=== PATIENT | female | born 1960 | race Caucasian/White ===

== ENCOUNTER → 2017-12-21 08:18 | Outpatient (CLI) | payer BC, SELFPAY ==
--- NOTE | 2017-12-21 08:29 | XR_ITS ---
XR DEXA axial skeleton HISTORY: ITS.REASON: POST MENOPAUSAL OSTEOPAROSIS SCREENING ORDERING PHYSICIAN: Davian Lopez MD PATIENT AGE: 57 years COMPARISON: 03/27/2011 FINDINGS: Lowest bone density described below The BMD measured at the right femoral neck is 1.076 g/cm squared with a T score of 0.3. This is considered normal according to the World Health Organization criteria. Fracture risk is low. Recommend follow-up exam December 2019. The density of the lumbar spine the T score 0.4. IMPRESSION: Normal bone density
== END ==
PROVIDERS: Family Provider Family Medicine; PCP Family Medicine; Visit Provider Family Medicine
DX: Z13.820 Encounter for screening for osteoporosis (principal); Z78.0 Asymptomatic menopausal state
CPT/HCPCS: 77080

== ENCOUNTER → 2018-06-05 08:36 | Outpatient (CLI) | payer BC, SELFPAY ==
--- NOTE | 2018-06-05 08:43 | US_ITS ---
MM Dig mamm DX unilat LT CAD, US breast LT complete, US mammotome bx LT, US organ site (breast) Ordering Physician: Davian Lopez MD Patient Age: 57 years Female ULTRASOUND LEFT BREAST ULTRASOUND-GUIDED MAMMOTOME VACUUM ASSISTED CORE BIOPSY with clip placement INDICATION: Left breast nodule seen on outside studies from [facility] COMPARISON: 05/24/2018 outside mammogram and ultrasound which revealed new solid nodule at 8 O'clock position left breast. Suspicious appearance on ultrasound ======== ULTRASOUND LEFT BREAST: The initial ultrasound again shows solid hypoechoic nodule at deep left breast 9 o'clock position. This measures up to 1 cm. Its position was confirmed and the best route for biopsy was determined by Dr. Eubanks and technologist MW ======= ULTRASOUND-GUIDED MAMMOTOME BIOPSY WITH CLIP PLACEMENT RIGHT BREAST] Patient was offered and received Xanax 0.5 & Lortab 5 prior to this procedure for comfort and mild sedation. Following sterile preparation and local skin anesthesia and deep Xylocaine anesthetic placement we proceeded with subsequently mammotome biopsy Small 2 mm incision was made in the skin by Dr. Eubanks after additional local skin anesthesia was placed,. Subsequent deep anesthetic placement posterior to the lesion The 12-gauge mammotome needle was then passed under ultrasound guidance. It was placed posterior aspect of the nodule and multiple biopsies were obtained removing majority portion of this this nodule. Patient tolerated procedure well.. At the end of procedure small clip with collagen plug was placed at the biopsy site. . ========= DIAGNOSTIC LEFT MAMMOGRAM post biopsy MLO cc view left breast performed. The nodular density at the medial left breast has been for the most part removed. A CT but postbiopsy changes in this area. Some scattered air within the apices site Along with the metallic marker clip from recent procedure. Patient tolerated well. Follow-up left mammogram 6 months suggested =======IMPRESSION: ========= 1. Successful ultrasound-guided mammotome biopsy left breast nodule . Majority of the suspicious nodule removed, here at at 9 o'clock position deep left breast. & Clip was placed (see PATHOLOGY REPORT.-- POSITIVE for MALIGNANCY . Invasive ductal carcinoma grade 2) 2. Left mammogram Postbiopsy demonstrates postbiopsy changes and documents metallic postbiopsy clip placement RECOMMENDED FOLLOW-UP: 6M 6 MONTH FOLLOW-UP Left mammogram 6 months suggested in part due to likely stable breast density which would benefit from follow-up in 6 months to confirm stability. A letter has been sent to the patient regarding results of the study.)
== END ==
PROVIDERS: Family Provider Family Medicine; PCP Family Medicine; Visit Provider Family Medicine
DX: R92.8 Other abnormal and inconclusive findings on diagnostic imaging of breast (principal)
CPT/HCPCS: 19083; 76641; 76942; 77065; C2618

== ENCOUNTER → 2018-07-04 17:56 | Outpatient (REF) | payer BC, SELFPAY | LOC: LAB 17:56 | PROVIDERS: Visit Provider Podiatrist | DX: B35.1 Tinea unguium (principal) | CPT/HCPCS: 87102; 87206; 87220 ==

== ENCOUNTER → 2018-09-09 07:27 | Outpatient (CLI) | payer BC, SELFPAY ==
[2018-09-09 07:37] LABS: Basophils # 0.1 K/mm3 (0-0.2); Basophils % 1.3 % (0.1-2.0); Eosinophils # 0.1 K/mm3 (0.0-0.4); Eosinophils % 2.8 % (0.1-12.0); Hematocrit 42.3 % (37.0-47.0); Hemoglobin 13.9 g/dL (12.2-16.2); Lymphocytes # 1.2 K/mm3 (0.7-4.5); Lymphocytes % 23.9 K/mm3 (10-50); Mean Corpuscular Hemoglobin 30.1 pg (27.0-31.2); Mean Corpuscular Volume 91.3 fl (81-99); Mean Platelet Volume 7.2 fl (7.4-10.4); Monocytes # 0.2 K/mm3 (0.1-1.0); Monocytes % 4.8 % (1.7-9.3); Neutrophils # 3.3 K/mm3 (1.8-7.8); Neutrophils % 67.2 % (37.0-80.0); Platelet Count 304 K/mm3 (142-424); Red Blood Count 4.63 M/mm3 (4.20-5.40); Red Cell Distribution Width 12.1 % (11.5-17.5)
[2018-09-09 08:30] LABS: Alanine Aminotransferase 33 U/L (12-78); Albumin Level 3.7 gm/dL (3.4-5.0); Albumin/Globulin Ratio 1.1 (1.1-1.8); Alkaline Phosphatase 112 U/L (46-116); Aspartate Amino Transferase 15 U/L (15-37); Bilirubin,Total 0.4 mg/dL (0.2-1.0); Blood Urea Nitrogen 16 mg/dL (7-18); Calcium 9.1 mg/dL (8.5-10.1); Carbon Dioxide 31 mmol/L (21.0-32.0); Chloride 100 mmol/L (98-107); Creatinine,Serum 0.96 mg/dL (0.55-1.02); Estimated Glomerular Filt Rate 59 ml/min (>60); GFR (African American) 72 ML/MIN (>60); Globulin 3.3 gm/dl (1.3-3.2); Glucose 102 mg/dL (74-106); Sodium 138 mmol/L (136-145)
== END ==
PROVIDERS: PCP Family Medicine; Visit Provider Internal Medicine
DX: Z51.11 Encounter for antineoplastic chemotherapy (principal); C50.919 Malignant neoplasm of unspecified site of unspecified female breast
CPT/HCPCS: 36415; 80053; 85025

== ENCOUNTER → 2018-09-16 07:43 | Outpatient (CLI) | payer BC, SELFPAY ==
[2018-09-16 09:19] LABS: Basophils % 0.9 % (0.1-2.0); Eosinophils # 0.1 K/mm3 (0.0-0.4); Eosinophils % 1.9 % (0.1-12.0); Hematocrit 41.5 % (37.0-47.0); Hemoglobin 13.4 g/dL (12.2-16.2); Lymphocytes # 1.4 K/mm3 (0.7-4.5); Lymphocytes % 30.4 K/mm3 (10-50); Mean Corpuscular HGB Conc 32.4 g/dL (31.8-35.4); Mean Corpuscular Hemoglobin 29.7 pg (27.0-31.2); Mean Corpuscular Volume 91.7 fl (81-99); Mean Platelet Volume 7.4 fl (7.4-10.4); Monocytes # 0.1 K/mm3 (0.1-1.0); Monocytes % 2.8 % (1.7-9.3); Platelet Count 321 K/mm3 (142-424); Red Blood Count 4.53 M/mm3 (4.20-5.40); Red Cell Distribution Width 12.2 % (11.5-17.5); White Blood Count 4.7 K/mm3 (4.8-10.8)
[2018-09-16 10:37] LABS: Alanine Aminotransferase 43 U/L (12-78); Albumin Level 3.6 gm/dL (3.4-5.0); Albumin/Globulin Ratio 1.1 (1.1-1.8); Alkaline Phosphatase 103 U/L (46-116); Anion Gap 10.2 mEq/L (5-15); Aspartate Amino Transferase 28 U/L (15-37); Bilirubin,Total 0.5 mg/dL (0.2-1.0); Blood Urea Nitrogen 15 mg/dL (7-18); Calcium 8.9 mg/dL (8.5-10.1); Carbon Dioxide 31 mmol/L (21.0-32.0); Chloride 99 mmol/L (98-107); Creatinine,Serum 0.96 mg/dL (0.55-1.02); Estimated Glomerular Filt Rate 59 ml/min (>60); GFR (African American) 72 ML/MIN (>60); Globulin 3.2 gm/dl (1.3-3.2); Glucose 122 mg/dL (74-106); Potassium 4.2 mmoL/L (3.5-5.1); Sodium 136 mmol/L (136-145); Total Protein,Serum 6.8 gm/dL (6.4-8.2)
== END ==
PROVIDERS: Visit Provider Internal Medicine
DX: C50.919 Malignant neoplasm of unspecified site of unspecified female breast (principal)
CPT/HCPCS: 36415; 80053; 85025

== ENCOUNTER → 2018-09-30 07:53 | Outpatient (CLI) | payer BC, SELFPAY ==
[2018-09-30 08:16] LABS: Basophils # 0.1 K/mm3 (0-0.2); Basophils % 1.3 % (0.1-2.0); Eosinophils # 0.1 K/mm3 (0.0-0.4); Eosinophils % 1.7 % (0.1-12.0); Hematocrit 38.6 % (37.0-47.0); Hemoglobin 12.9 g/dL (12.2-16.2); Lymphocytes % 22.8 % (10-50); Mean Corpuscular HGB Conc 33.5 g/dL (31.8-35.4); Mean Corpuscular Hemoglobin 30.7 pg (27.0-31.2); Mean Corpuscular Volume 91.7 fl (81-99); Mean Platelet Volume 7.1 fl (7.4-10.4); Monocytes # 0.2 K/mm3 (0.1-1.0); Monocytes % 3.4 % (1.7-9.3); Neutrophils # 3.2 K/mm3 (1.8-7.8); Neutrophils % 70.8 % (37.0-80.0); Platelet Count 338 K/mm3 (142-424); Red Blood Count 4.21 M/mm3 (4.20-5.40); Red Cell Distribution Width 13.2 % (11.5-17.5); White Blood Count 4.5 K/mm3 (4.8-10.8)
[2018-09-30 09:50] LABS: Alanine Aminotransferase 36 U/L (12-78); Albumin Level 3.7 gm/dL (3.4-5.0); Albumin/Globulin Ratio 1.2 (1.1-1.8); Alkaline Phosphatase 107 U/L (46-116); Anion Gap 13.2 mEq/L (5-15); Aspartate Amino Transferase 19 U/L (15-37); Bilirubin,Total 0.4 mg/dL (0.2-1.0); Blood Urea Nitrogen 21 mg/dL (7-18); Calcium 9.4 mg/dL (8.5-10.1); Carbon Dioxide 26 mmol/L (21.0-32.0); Chloride 101 mmol/L (98-107); Estimated Glomerular Filt Rate 57 ml/min (>60); GFR (African American) 69 ML/MIN (>60); Globulin 3.2 gm/dl (1.3-3.2); Glucose 123 mg/dL (74-106); Potassium 4.2 mmoL/L (3.5-5.1); Sodium 136 mmol/L (136-145); Total Protein,Serum 6.9 gm/dL (6.4-8.2)
== END ==
PROVIDERS: Visit Provider Internal Medicine
DX: C50.912 Malignant neoplasm of unspecified site of left female breast (principal)
CPT/HCPCS: 36415; 80053; 85025

== ENCOUNTER → 2018-10-08 07:21 | Outpatient (CLI) | payer BC, SELFPAY ==
[2018-10-08 07:32] LABS: Basophils # 0.1 K/mm3 (0-0.2); Basophils % 1.5 % (0.1-2.0); Eosinophils # 0.1 K/mm3 (0.0-0.4); Hematocrit 36.9 % (37.0-47.0); Hemoglobin 12.1 g/dL (12.2-16.2); Lymphocytes # 1.1 K/mm3 (0.7-4.5); Lymphocytes % 31.2 % (10-50); Mean Corpuscular HGB Conc 32.7 g/dL (31.8-35.4); Mean Corpuscular Hemoglobin 30.3 pg (27.0-31.2); Mean Corpuscular Volume 92.9 fl (81-99); Mean Platelet Volume 7.7 fl (7.4-10.4); Monocytes # 0.2 K/mm3 (0.1-1.0); Monocytes % 4.8 % (1.7-9.3); Neutrophils # 2.2 K/mm3 (1.8-7.8); Neutrophils % 60.6 % (37.0-80.0); Platelet Count 372 K/mm3 (142-424); Red Blood Count 3.97 M/mm3 (4.20-5.40); Red Cell Distribution Width 14.1 % (11.5-17.5); White Blood Count 3.6 K/mm3 (4.8-10.8)
[2018-10-08 07:46] LABS: Alanine Aminotransferase 39 U/L (12-78); Albumin Level 3.6 gm/dL (3.4-5.0); Alkaline Phosphatase 103 U/L (46-116); Anion Gap 10.9 mEq/L (5-15); Aspartate Amino Transferase 17 U/L (15-37); Bilirubin,Total 0.2 mg/dL (0.2-1.0); Blood Urea Nitrogen 14 mg/dL (7-18); Calcium 8.8 mg/dL (8.5-10.1); Carbon Dioxide 28 mmol/L (21.0-32.0); Chloride 102 mmol/L (98-107); Creatinine,Serum 0.91 mg/dL (0.55-1.02); Estimated Glomerular Filt Rate 63 ml/min (>60); GFR (African American) 76 ML/MIN (>60); Globulin 3.5 gm/dl (1.3-3.2); Glucose 109 mg/dL (74-106); Potassium 3.9 mmoL/L (3.5-5.1); Sodium 137 mmol/L (136-145); Total Protein,Serum 7.1 gm/dL (6.4-8.2)
== END ==
PROVIDERS: Visit Provider Internal Medicine
DX: C50.919 Malignant neoplasm of unspecified site of unspecified female breast (principal)
CPT/HCPCS: 36415; 80053; 85025

== ENCOUNTER → 2018-10-14 07:36 | Outpatient (CLI) | payer BC, SELFPAY ==
[2018-10-14 07:45] LABS: Basophils # 0.1 K/mm3 (0-0.2); Eosinophils # 0.1 K/mm3 (0.0-0.4); Eosinophils % 1.7 % (0.1-12.0); Hematocrit 37.9 % (37.0-47.0); Hemoglobin 12.3 g/dL (12.2-16.2); Lymphocytes # 0.8 K/mm3 (0.7-4.5); Lymphocytes % 21.9 % (10-50); Mean Corpuscular HGB Conc 32.4 g/dL (31.8-35.4); Mean Corpuscular Hemoglobin 30.2 pg (27.0-31.2); Mean Corpuscular Volume 93.3 fl (81-99); Monocytes # 0.1 K/mm3 (0.1-1.0); Neutrophils # 2.7 K/mm3 (1.8-7.8); Neutrophils % 71.4 % (37.0-80.0); Platelet Count 378 K/mm3 (142-424); Red Blood Count 4.07 M/mm3 (4.20-5.40); Red Cell Distribution Width 14.3 % (11.5-17.5); White Blood Count 3.8 K/mm3 (4.8-10.8)
[2018-10-14 07:59] LABS: Alanine Aminotransferase 45 U/L (12-78); Albumin Level 3.6 gm/dL (3.4-5.0); Albumin/Globulin Ratio 1.1 (1.1-1.8); Alkaline Phosphatase 95 U/L (46-116); Anion Gap 10.4 mEq/L (5-15); Aspartate Amino Transferase 16 U/L (15-37); Bilirubin,Total 0.4 mg/dL (0.2-1.0); Blood Urea Nitrogen 14 mg/dL (7-18); Calcium 8.8 mg/dL (8.5-10.1); Carbon Dioxide 29 mmol/L (21.0-32.0); Chloride 102 mmol/L (98-107); Creatinine,Serum 0.96 mg/dL (0.55-1.02); Estimated Glomerular Filt Rate 59 ml/min (>60); GFR (African American) 72 ML/MIN (>60); Globulin 3.4 gm/dl (1.3-3.2); Glucose 124 mg/dL (74-106); Potassium 4.4 mmoL/L (3.5-5.1); Sodium 137 mmol/L (136-145)
== END ==
PROVIDERS: Visit Provider Internal Medicine
DX: C50.919 Malignant neoplasm of unspecified site of unspecified female breast (principal)
CPT/HCPCS: 36415; 80053; 85025

== ENCOUNTER → 2018-10-21 07:44 | Outpatient (CLI) | payer BC, SELFPAY ==
[2018-10-21 07:55] LABS: Basophils # 0.1 K/mm3 (0-0.2); Basophils % 1.8 % (0.1-2.0); Eosinophils # 0.1 K/mm3 (0.0-0.4); Eosinophils % 2.2 % (0.1-12.0); Hemoglobin 12.2 g/dL (12.2-16.2); Lymphocytes # 1.1 K/mm3 (0.7-4.5); Lymphocytes % 26.4 % (10-50); Mean Corpuscular Hemoglobin 30.7 pg (27.0-31.2); Mean Corpuscular Volume 93.1 fl (81-99); Mean Platelet Volume 7.2 fl (7.4-10.4); Monocytes # 0.2 K/mm3 (0.1-1.0); Monocytes % 3.7 % (1.7-9.3); Neutrophils # 2.8 K/mm3 (1.8-7.8); Neutrophils % 65.8 % (37.0-80.0); Platelet Count 343 K/mm3 (142-424); Red Blood Count 3.97 M/mm3 (4.20-5.40); Red Cell Distribution Width 14.8 % (11.5-17.5); White Blood Count 4.2 K/mm3 (4.8-10.8)
[2018-10-21 08:06] LABS: Alanine Aminotransferase 34 U/L (12-78); Albumin Level 3.6 gm/dL (3.4-5.0); Albumin/Globulin Ratio 1.1 (1.1-1.8); Alkaline Phosphatase 116 U/L (46-116); Aspartate Amino Transferase 15 U/L (15-37); Bilirubin,Total 0.3 mg/dL (0.2-1.0); Blood Urea Nitrogen 12 mg/dL (7-18); Calcium 8.7 mg/dL (8.5-10.1); Carbon Dioxide 28 mmol/L (21.0-32.0); Chloride 100 mmol/L (98-107); Creatinine,Serum 0.95 mg/dL (0.55-1.02); Estimated Glomerular Filt Rate 60 ml/min (>60); GFR (African American) 73 ML/MIN (>60); Globulin 3.4 gm/dl (1.3-3.2); Glucose 125 mg/dL (74-106); Sodium 136 mmol/L (136-145)
== END ==
PROVIDERS: Visit Provider Internal Medicine
DX: Z51.11 Encounter for antineoplastic chemotherapy (principal); C50.919 Malignant neoplasm of unspecified site of unspecified female breast
CPT/HCPCS: 36415; 80053; 85025

== ENCOUNTER → 2018-10-28 07:42 | Outpatient (CLI) | payer BC, SELFPAY ==
[2018-10-28 07:55] LABS: Basophils # 0.1 K/mm3 (0-0.2); Basophils % 1.3 % (0.1-2.0); Eosinophils # 0.1 K/mm3 (0.0-0.4); Eosinophils % 1.2 % (0.1-12.0); Hematocrit 40.4 % (37.0-47.0); Hemoglobin 13.1 g/dL (12.2-16.2); Lymphocytes # 1.9 K/mm3 (0.7-4.5); Lymphocytes % 32.5 % (10-50); Mean Corpuscular HGB Conc 32.4 g/dL (31.8-35.4); Mean Corpuscular Hemoglobin 31.1 pg (27.0-31.2); Mean Corpuscular Volume 95.9 fl (81-99); Monocytes # 0.3 K/mm3 (0.1-1.0); Monocytes % 5.5 % (1.7-9.3); Neutrophils # 3.5 K/mm3 (1.8-7.8); Neutrophils % 59.5 % (37.0-80.0); Platelet Count 398 K/mm3 (142-424); Red Blood Count 4.21 M/mm3 (4.20-5.40); Red Cell Distribution Width 14.4 % (11.5-17.5); White Blood Count 5.9 K/mm3 (4.8-10.8)
[2018-10-28 08:07] LABS: Alanine Aminotransferase 35 U/L (12-78); Albumin Level 3.7 gm/dL (3.4-5.0); Albumin/Globulin Ratio 1.1 (1.1-1.8); Alkaline Phosphatase 118 U/L (46-116); Anion Gap 7.8 mEq/L (5-15); Aspartate Amino Transferase 14 U/L (15-37); Bilirubin,Total 0.5 mg/dL (0.2-1.0); Blood Urea Nitrogen 20 mg/dL (7-18); Calcium 8.8 mg/dL (8.5-10.1); Carbon Dioxide 31 mmol/L (21.0-32.0); Chloride 101 mmol/L (98-107); Creatinine,Serum 0.99 mg/dL (0.55-1.02); Estimated Glomerular Filt Rate 57 ml/min (>60); GFR (African American) 69 ML/MIN (>60); Globulin 3.3 gm/dl (1.3-3.2); Glucose 79 mg/dL (74-106); Potassium 3.8 mmoL/L (3.5-5.1); Sodium 136 mmol/L (136-145)
== END ==
PROVIDERS: Visit Provider Internal Medicine
DX: C50.919 Malignant neoplasm of unspecified site of unspecified female breast (principal)
CPT/HCPCS: 36415; 80053; 85025

== ENCOUNTER → 2018-11-04 10:29 | Outpatient (CLI) | payer BC, SELFPAY ==
[2018-11-04 10:39] LABS: Basophils # 0.1 K/mm3 (0-0.2); Basophils % 1.1 % (0.1-2.0); Eosinophils # 0.1 K/mm3 (0.0-0.4); Eosinophils % 1.7 % (0.1-12.0); Hematocrit 38.9 % (37.0-47.0); Hemoglobin 12.6 g/dL (12.2-16.2); Lymphocytes # 1.1 K/mm3 (0.7-4.5); Lymphocytes % 21.9 % (10-50); Mean Corpuscular HGB Conc 32.4 g/dL (31.8-35.4); Mean Corpuscular Hemoglobin 30.9 pg (27.0-31.2); Mean Corpuscular Volume 95.4 fl (81-99); Mean Platelet Volume 7.1 fl (7.4-10.4); Monocytes # 0.3 K/mm3 (0.1-1.0); Monocytes % 5.3 % (1.7-9.3); Neutrophils # 3.5 K/mm3 (1.8-7.8); Neutrophils % 70.1 % (37.0-80.0); Platelet Count 328 K/mm3 (142-424); Red Blood Count 4.08 M/mm3 (4.20-5.40); Red Cell Distribution Width 14.8 % (11.5-17.5)
[2018-11-04 10:49] LABS: Alanine Aminotransferase 33 U/L (12-78); Albumin Level 3.5 gm/dL (3.4-5.0); Anion Gap 10.6 mEq/L (5-15); Aspartate Amino Transferase 21 U/L (15-37); Bilirubin,Total 0.4 mg/dL (0.2-1.0); Blood Urea Nitrogen 15 mg/dL (7-18); Calcium 8.7 mg/dL (8.5-10.1); Carbon Dioxide 28 mmol/L (21.0-32.0); Chloride 102 mmol/L (98-107); Creatinine,Serum 0.99 mg/dL (0.55-1.02); Estimated Glomerular Filt Rate 57 ml/min (>60); GFR (African American) 69 ML/MIN (>60); Globulin 3.2 gm/dl (1.3-3.2); Glucose 99 mg/dL (74-106); Potassium 3.6 mmoL/L (3.5-5.1); Sodium 137 mmol/L (136-145); Total Protein,Serum 6.7 gm/dL (6.4-8.2)
[2018-11-04 10:50] LABS: Albumin/Globulin Ratio 1.1 (1.1-1.8); Alkaline Phosphatase 103 U/L (46-116)
== END ==
PROVIDERS: Visit Provider Internal Medicine
DX: C50.919 Malignant neoplasm of unspecified site of unspecified female breast (principal)
CPT/HCPCS: 36415; 80053; 85025

== ENCOUNTER → 2018-11-11 07:40 | Outpatient (CLI) | payer BC, SELFPAY ==
[2018-11-11 07:51] LABS: Basophils # 0.1 K/mm3 (0-0.2); Basophils % 1.1 % (0.1-2.0); Eosinophils # 0.1 K/mm3 (0.0-0.4); Eosinophils % 1.9 % (0.1-12.0); Hematocrit 41.2 % (37.0-47.0); Hemoglobin 13.1 g/dL (12.2-16.2); Lymphocytes # 0.9 K/mm3 (0.7-4.5); Lymphocytes % 18.9 % (10-50); Mean Corpuscular HGB Conc 31.8 g/dL (31.8-35.4); Mean Corpuscular Hemoglobin 30.1 pg (27.0-31.2); Mean Corpuscular Volume 94.8 fl (81-99); Mean Platelet Volume 7.2 fl (7.4-10.4); Monocytes # 0.2 K/mm3 (0.1-1.0); Monocytes % 4.5 % (1.7-9.3); Neutrophils # 3.6 K/mm3 (1.8-7.8); Neutrophils % 73.7 % (37.0-80.0); Platelet Count 318 K/mm3 (142-424); Red Blood Count 4.34 M/mm3 (4.20-5.40); Red Cell Distribution Width 14.2 % (11.5-17.5); White Blood Count 4.9 K/mm3 (4.8-10.8)
[2018-11-11 08:13] LABS: Alanine Aminotransferase 42 U/L (12-78); Albumin Level 3.5 gm/dL (3.4-5.0); Alkaline Phosphatase 100 U/L (46-116); Anion Gap 10.3 mEq/L (5-15); Aspartate Amino Transferase 22 U/L (15-37); Bilirubin,Total 0.4 mg/dL (0.2-1.0); Blood Urea Nitrogen 14 mg/dL (7-18); Calcium 8.8 mg/dL (8.5-10.1); Carbon Dioxide 30 mmol/L (21.0-32.0); Chloride 101 mmol/L (98-107); Estimated Glomerular Filt Rate 57 ml/min (>60); GFR (African American) 68 ML/MIN (>60); Globulin 3.4 gm/dl (1.3-3.2); Glucose 149 mg/dL (74-106); Potassium 4.3 mmoL/L (3.5-5.1); Sodium 137 mmol/L (136-145); Total Protein,Serum 6.9 gm/dL (6.4-8.2)
== END ==
PROVIDERS: Visit Provider Internal Medicine
DX: C50.919 Malignant neoplasm of unspecified site of unspecified female breast (principal); Z51.11 Encounter for antineoplastic chemotherapy
CPT/HCPCS: 36415; 80053; 85025

== ENCOUNTER → 2018-11-18 08:00 | Outpatient (CLI) | payer BC, SELFPAY ==
[2018-11-18 08:11] LABS: Eosinophils # 0.1 K/mm3 (0.0-0.4); Eosinophils % 2.3 % (0.1-12.0); Hematocrit 39.9 % (37.0-47.0); Hemoglobin 12.7 g/dL (12.2-16.2); Lymphocytes # 0.9 K/mm3 (0.7-4.5); Lymphocytes % 21.1 % (10-50); Mean Corpuscular HGB Conc 31.9 g/dL (31.8-35.4); Mean Platelet Volume 7.7 fl (7.4-10.4); Monocytes # 0.2 K/mm3 (0.1-1.0); Monocytes % 4.9 % (1.7-9.3); Neutrophils % 70.8 % (37.0-80.0); Platelet Count 316 K/mm3 (142-424); Red Blood Count 4.11 M/mm3 (4.20-5.40); Red Cell Distribution Width 14.4 % (11.5-17.5); White Blood Count 4.2 K/mm3 (4.8-10.8)
[2018-11-18 08:24] LABS: Alanine Aminotransferase 32 U/L (12-78); Albumin Level 3.5 gm/dL (3.4-5.0); Albumin/Globulin Ratio 1.1 (1.1-1.8); Alkaline Phosphatase 92 U/L (46-116); Anion Gap 11.2 mEq/L (5-15); Aspartate Amino Transferase 19 U/L (15-37); Bilirubin,Total 0.5 mg/dL (0.2-1.0); Blood Urea Nitrogen 13 mg/dL (7-18); Calcium 8.7 mg/dL (8.5-10.1); Carbon Dioxide 28 mmol/L (21.0-32.0); Chloride 100 mmol/L (98-107); Creatinine,Serum 0.94 mg/dL (0.55-1.02); Estimated Glomerular Filt Rate 61 ml/min (>60); GFR (African American) 73 ML/MIN (>60); Globulin 3.3 gm/dl (1.3-3.2); Glucose 115 mg/dL (74-106); Potassium 4.2 mmoL/L (3.5-5.1); Sodium 135 mmol/L (136-145); Total Protein,Serum 6.8 gm/dL (6.4-8.2)
== END ==
PROVIDERS: Visit Provider Internal Medicine
DX: C50.919 Malignant neoplasm of unspecified site of unspecified female breast (principal)
CPT/HCPCS: 36415; 80053; 85025

== ENCOUNTER → 2019-03-25 15:54 | Outpatient (POV) | payer BC, SELFPAY | PROVIDERS: Visit Provider Dermatology | DX: Z00.00 Encounter for general adult medical examination without abnormal findings (principal) ==

== ENCOUNTER → 2020-03-30 15:55 | Outpatient (POV) | payer BC, SELFPAY | PROVIDERS: PCP Physician Assistant; Visit Provider Physician Assistant | DX: Z00.00 Encounter for general adult medical examination without abnormal findings (principal) ==

== ENCOUNTER → 2020-05-25 14:43 | Outpatient (POV) | payer BC, SELFPAY | PROVIDERS: PCP Family Medicine; Visit Provider Dermatology | DX: Z00.00 Encounter for general adult medical examination without abnormal findings (principal) ==

== ENCOUNTER → 2020-08-03 15:15 | Outpatient (CLI) | payer BC, SELFPAY ==
--- NOTE | 2020-08-03 15:21 | XR_ITS ---
PROCEDURE: XR DEXA AXIAL SKELETON CLINICAL HISTORY: OSTEOPENIA COMPARISON: CR DEXAAX XR DEXA axial skeleton from 12/21/2017 FINDINGS: The right hip BMD is 0.825 with a T-score of -0.2. The left hip BMD is 0.897 with a T-score of -0.4. The lumbar spine BMD is 1.126 with a T-score of 0.7. Previously the lowest density was in the right femoral neck with with a T-score of 0.3 IMPRESSION: This patient is considered normal according to the World Health Organization criteria. Fracture risk is low. Based on these results a follow-up exam is recommended in 2 year. Dictated by: Howard Barbour MD 08/04/2020 06:45 Howard Barbour MD in [place] 08/04/2020 06:45
== END ==
PROVIDERS: PCP Family Medicine; Visit Provider Family Medicine
DX: M85.89 Other specified disorders of bone density and structure, multiple sites (principal)
CPT/HCPCS: 77080

== ENCOUNTER 2020-10-05 13:35 | Emergency (ER) | payer BC, SELFPAY ==
[2020-10-05 13:40] VITALS: BP 148/98; PULSE 63; RESP 18; TEMP 36.9; O2SAT 99; BMI 25.2
--- NOTE | 2020-10-05 14:03 | HMH.EDUTC ---
[facility] [place] Impression: Exposure to COVID-19 virus Disposition: Home, Self-Care Condition on Discharge: Good Instructions: Preventing the Spread of Coronavirus Discharge Instructions Additional Instructions: *Monitor Temp, Over the counter Motrin or Tylenol as directed/as needed Tylenol every 4 hours and Motrin every 6 hours (as long as your family doctor has told you that you can take it) for fever or pain. and straight to ER if unable to lower temp less than 101.0 after medication given *Warm salt water gargles may help to soothe the throat *Throat Lozenges *Warm fluids like tea with honey may help to soothe the throat *Sleep elevated *Humidifier/Vaporizer Follow up IMMEDIATELY for new or worsening symptoms or no Noticeable improvement over the next 48-72 hours. 911 for difficulty breathing or swallowing You was tested for today for COVID19 your test result should be back in the next 24-48 hours, you may call to the [facility] tomorrow to see if your test results are back and the result [phone] [facility] hours are 9am-9pm You was given a handout with instructions for Self Quarantine and Self isolation for while you wait on test results and what to do if they are positive If you are positive the Health Dept will be contacting you also Referrals: Davian Lopez MD [Primary Care Provider] - As needed Forms: Work/School Release Time of Disposition: 14:03 Medical Decision Making - Melvin Inquiry Pt receiving controlled substance: No Melvin was queried for this patient: No Vital Signs: 10/05/20 13:40 Temperature 98.4 F Temperature Source Oral Pulse Rate [Right Brachial] 63 Respiratory Rate 18 Blood Pressure [Right Arm] 148/98 H Blood Pressure Mean [Right Arm] 114 Blood Pressure Source [Right Arm] Automatic Cuff Blood Pressure Position [Right Arm] Sitting 02 Sat by Pulse Oximetry 99 Oxygen Delivery Method Room Air Orders (Tests/Meds): ORDERS Category Date Time Status Covid-19 Nasal PCR Sendout [facility] 10/05/20 13:43 [place] [facility] [place] - General Stated complaint: covid exposure Time Seen by Provider: 10/05/20 14:03 Mode of Arrival: Ambulatory Source of Information: Patient Limitations: No Limitations Description of Symptoms (Recalled from Triage Doc. by RN): PATIENT REQUESTING COVID TEST D/T POSSIBLE EXPOSURE; DENIES SYMPTOMS HEENT Symptoms (Recalled from RN notes): No Resp Symptoms (Recalled from RN notes): No Skin Symptoms (Recalled from RN notes): No MS Symptoms (Recalled from RN notes): No Functional Status (Recalled from RN notes): WNL - History of Present Illness Provider Complaint: Patient states that she had lunch with a friend last week that has since tested positive for COVID States that she is not having any symptoms but still wants to get tested - Related Data Home Medications Medication Instructions Recorded Confirmed atorvastatin 20 mg tablet 20 mg PO ONCE 06/17/18 10/28/18 budesonide-formoterol HFA 80 2 puff INHALATION BID 06/17/18 10/28/18 mcg-4.5 mcg/actuation aerosol inhaler fluticasone propionate 50 1 spray INTRANASAL ONCE 06/17/18 10/28/18 mcg/actuation nasal spray,suspension imipramine HCl 50 mg tablet 50 mg PO BID 06/17/18 10/28/18 linaclotide 145 mcg capsule 145 mcg PO ONCE 06/17/18 10/28/18 montelukast 10 mg tablet 10 mg PO QPM 06/17/18 10/28/18 polyethylene glycol 3350 17 NG-TUBE 06/17/18 10/28/18 gram/dose oral powder potassium chloride 10 mEq 10 meq PO BID 06/17/18 10/28/18 capsule,extended release sertraline 25 mg tablet 25 mg PO DAILY 07/04/18 10/28/18 losartan 100 PO 90 Days #90 tab 09/02/18 10/28/18 mg-hydrochlorothiazide 25 mg tablet Previous Rx's Medication Instructions Recorded urea 40 % topical cream 1 applic TOPICAL BID #60 applic 09/02/18 triamcinolone acetonide 0.5 % 1 applic TOPICAL BID #454 g 10/28/18 topical cream Allergies Allergy/AdvReac Type Severity Reaction Status Date / Time No Known Calvin
[2020-10-05 14:04] VITALS: BP 148/98; PULSE 63; RESP 18; TEMP 36.9; O2SAT 99
[2020-10-06 15:45] LABS: Covid-19 Nasal PCR Sendout Lex Not Detected
== END 2020-10-05 14:05 | disposition home or self-care (01) ==
PROVIDERS: Emergency Provider Nurse Practitioner; PCP Family Medicine
DX: Z20.828 Contact with and (suspected) exposure to other viral communicable diseases (principal)
CPT/HCPCS: 99201; U0004

== ENCOUNTER → 2020-11-18 11:32 | Outpatient (CLI) | payer BC, SELFPAY | PROVIDERS: PCP Family Medicine; Visit Provider Family Medicine | DX: Z20.828 Contact with and (suspected) exposure to other viral communicable diseases (principal); U07.1 COVID-19 | CPT/HCPCS: 87275; 87276; U0003 ==

== ENCOUNTER → 2021-03-22 16:02 | Outpatient (POV) | payer BC, SELFPAY | PROVIDERS: Visit Provider Dermatology | DX: Z00.00 Encounter for general adult medical examination without abnormal findings (principal) ==

== ENCOUNTER → 2021-06-19 09:37 | Outpatient (CLI) | payer BC, SELFPAY | PROVIDERS: PCP Family Medicine; Visit Provider Family Medicine | DX: Z20.822 Contact with and (suspected) exposure to COVID-19 (principal) | CPT/HCPCS: U0003 ==

== ENCOUNTER → 2021-06-30 12:48 | Outpatient (CLI) | payer BC, SELFPAY ==
--- NOTE | 2021-06-30 13:40 | PC.NURSE ---
PFT and 6 Minute Walk Test completed without incident. Albuterol 0.083% given via HHN Pt tolerated tx well.
== END ==
PROVIDERS: PCP Family Medicine; Visit Provider Internal Medicine Pulmonary Disease
DX: R06.00 Dyspnea, unspecified (principal)
CPT/HCPCS: 94060; 94618; 94726; 94729

== ENCOUNTER → 2021-10-19 07:34 | Outpatient (CLI) | payer BC, SELFPAY ==
--- NOTE | 2021-10-19 07:49 | XR_ITS ---
PROCEDURE: XR CHEST 2V CLINICAL HISTORY: CHRONIC COUGH COMPARISON: No exams were available for comparison FINDINGS: The cardiomediastinal silhouette and pulmonary vascularity are within normal limits. The lungs are clear without infiltrates, suspicious nodules, or pleural effusions. Degenerative changes thoracic spine. Mild lumbar scoliosis convex right IMPRESSION: No acute findings. Dictated by: Howard Barbour MD 10/19/2021 16:36 Howard Barbour MD in [place] 10/19/2021 16:36
== END ==
PROVIDERS: PCP Family Medicine; Visit Provider Family Medicine
DX: R05.3 Chronic cough (principal)
CPT/HCPCS: 71046

== ENCOUNTER → 2022-11-10 16:40 | Outpatient (CLI) | payer BC, SELFPAY ==
[2022-11-10 16:47] LABS: Microscopic, Urine URINE MICROSCOPIC (MICROSCOPIC)
[2022-11-10 19:45] LABS: Appearance,Urine CLEAR (Clear); Bilirubin,Urine Negative (Negative); Blood, Urine 1+ (Negative); Color,Urine YELLOW (Yellow); Glucose,Urine (UA) Negative (Negative); Ketones,Urine Negative (Negative); Leukocyte Esterase,Urine 1+ (Negative); Nitrate,Urine Negative (Negative); PH,Urine 6.5 (5.0-8.5); Protein,Urine Negative (Negative); Urobilinogen,Urine 0.2 EU/dl (0.2)
[2022-11-10 20:59] LABS: RBC,Urine Occasional #/hpf (0-3)
[2022-11-10 21:00] LABS: Bacteria,Urine 2+ /lpf; Squamous Epithelial Cell,Urine Occasional #/hpf (0-5)
== END ==
PROVIDERS: PCP Psychiatry & Neurology Sleep Medicine; Visit Provider Nurse Practitioner Family
DX: R30.0 Dysuria (principal); B96.89 Other specified bacterial agents as the cause of diseases classified elsewhere
CPT/HCPCS: 81001; 87086; 87088; 87186

== ENCOUNTER 2024-08-15 09:33 | Outpatient (CLI) | payer MEDICARE, SELFPAY ==
--- NOTE | 2024-08-15 09:35 | XR_ITS ---
FINAL REPORT CLINICAL HISTORY: SCREENING COMPARISON: 08/03/2020 FINDINGS: Using L1-4, the bone mineral density of the spine is 1.153 g/cm2, corresponding to T-score of 1.0 which is within normal limits. Previously was 1.126 with a T-score of 0.7. Using the left hip, the bone mineral density of the femoral neck is 0.916 g/cm2, corresponding to a T-score of -0.2 which is within normal limits. Previously was 0.897 with a T-score of -0.4. Using the right hip, the bone mineral density of the femoral neck is 0.876 g/cm2, corresponding to a T-score of 0.2 which is within normal limits. Previously was 0.825 with a T-score of -0.2. FRAX not reported because all T-scores at or above-1.0. NOTE: T-score: Standard deviation compared with peak bone mass of young adult mean. *Following the recommendations of the International Society of Bone densitometry, classification of hip BMD is based on the lower of two T-scores; total hip or femoral neck. IMPRESSION: Normal bone mineral density of the lumbar spine and hips. Reviewed, Interpreted and Dictated by Chicho Love MD Transcribed by Tiffanie Guzman Authenticated and [facility]
== END 2024-08-15 23:59 | disposition home or self-care (01) ==
LOC: RAD 09:33
PROVIDERS: PCP Internal Medicine Adolescent Medicine; Visit Provider Nurse Practitioner Family
DX: Z78.0 Asymptomatic menopausal state (principal)
CPT/HCPCS: 77080

== ENCOUNTER 2024-09-30 13:15 | Outpatient (POV) | payer MEDICARE, SELFPAY | END 2024-09-30 23:59 | disposition home or self-care (01) | LOC: SC 10-01 06:55 | PROVIDERS: Visit Provider Dermatology | DX: Z00.00 Encounter for general adult medical examination without abnormal findings (principal) ==

== ENCOUNTER 2025-06-01 08:17 | Day surgery (SDC) | payer MEDICARE, SELFPAY ==
[2025-05-29 11:46] VITALS: BMI 23.6
[2025-06-01 08:33] VITALS: BP 132/74; PULSE 87; RESP 16; TEMP 36.4; O2SAT 99
[2025-06-01] MEDS: LACTATED RINGERS 1000ML 1,000 ML 50 ML IV (08:47)
--- NOTE | 2025-06-01 08:50 | EXP.HP ---
History of Present Illness *Admission Date: 06/01/25 *Reason for visit:: Screening colonoscopy *History of present illness: Mrs. Ortez is a 64-year-old female who is here for follow-up screening colonoscopy and has had multiple polyps removed previously. The examination is deemed medically necessary for screening colonoscopy. The patient has been seen, interviewed and examined prior to the procedure by both myself and the anesthesia provider. [facility] Disclaimer: The information contained in this section may have been updated after the patient was seen, as this information can be updated by other users. Medical History History of COVID-19 Anxiety and depression Irritable bowel syndrome (IBS) Hyperlipidemia Hypertension Breast cancer Surgical History History of cholecystectomy History of hysterectomy H/O lumpectomy Family History Other COPD (chronic obstructive pulmonary disease) Diabetes Stroke Social History Smoking Status: Former smoker alcohol intake: current alcohol intake frequency: 0-2 drinks per day substance use type: denies use current occupational status: retired Travel in the last 8 weeks?: None Have you lived/traveled outside US in past 30 days?: No Contact w/someone who lives/traveled outside US past 30 days?: No Exposure to someone with infectious disease in past 14 days?: No Do you have a fever (greater than 100.4 F or 38 C)?: No Have you tested positive for COVID-19?: No Exposed to someone with COVID-19 in past 14 days?: No Do you have a sore throat?: No Do you have a cough?: No Do you have any weakness?: No Are you experiencing any nausea/vomitting?: No Do you have any diarrhea?: No Are you experiencing any unusual bleeding?: No Do you have any muscle aches/pain?: No Do you have any abdominal pain?: No Are you experiencing loss of taste or smell?: No Other Medical History Have you received the Flu Vaccine for this season: Yes Have you received the Pneumonia Vaccine: Yes Review of Systems Review of Systems Review of systems (narrative): Negative *Cardiovascular Comments: Negative *Gastrointestinal Comments: Negative *Genitourinary Comments: Negative *Musculoskeletal Comments: Negative *Neurologic Comments: Negative Meds Home Medications and Allergies Home Medications ?Medication ?Instructions ?Recorded ?Confirmed ?Type atorvastatin 20 mg tablet 20 mg PO ONCE 06/17/18 05/29/25 History budesonide-formoterol HFA 80 2 puff inhalation BID 06/17/18 05/29/25 History mcg-4.5 mcg/actuation aerosol inhaler (Symbicort) imipramine HCl 50 mg tablet 50 mg PO BID 06/17/18 05/29/25 History linaclotide 145 mcg capsule 145 mcg PO ONCE 06/17/18 05/29/25 History (Linzess) montelukast 10 mg tablet 10 mg PO QPM 06/17/18 05/29/25 History potassium chloride 10 mEq 10 meq PO TID 06/17/18 05/29/25 History capsule,extended release sertraline 25 mg tablet (Zoloft) 25 mg PO DAILY 07/04/18 05/29/25 History losartan 100 1 tab PO DAILY 90 days #90 tabs 09/02/18 05/29/25 History mg-hydrochlorothiazide 25 mg tablet amlodipine 10 mg tablet 10 mg PO DAILY 03/24/25 05/29/25 History levocetirizine 5 mg tablet 5 mg PO DAILY 03/24/25 05/29/25 History glucosamine sulfate 500 mg tablet 500 mg PO DAILY 05/29/25 05/29/25 History New Prescriptions to Start Prescriptions: Allergies Allergy/AdvReac Type Severity Reaction Status Date / Time No Known Allergies Allergy Verified 06/01/25 08:27 Exam Data for Last 24 hours Vital signs and Labs for Last 24 Hours: Temp Pulse Resp BP Pulse Ox O2 Del Method 97.6 F 87 16 132/74 99 Room Air 06/01/25 08:33 06/01/25 08:33 06/01/25 08:33 06/01/25 08:33 06/01/25 08:33 06/01/25 08:33 I & O for Last 24 hours: Intake & Output 05/29/25 05/30/25 05/31/25 06/01/25 23:59 23:59 23:59 23:59 Weight 129 lb *Routine HEENT Exam Head: Present normocephalic Eye: Present EOMI and PERRL ENT: Present mucous membranes moist *Routine Neck Exam Neck: Present supple *Routine Respiratory Exam Respiratory: Present CTA bilaterally *Routine Cardiovascular Exam Cardiovascular: Present RRR *Routine Abdominal Exam Abdominal: Present soft and normoactive bowel sounds; Absent tenderness *Routine Rectal Exam Rectal:: deferred *Routine Genitalia Exam Genitalia:: deferred *Routine Extremities Exam Extremities: Absent cyanosis, clubbing or edema *Routine Skin Exam Skin: Present warm; Absent rash *Routine Neurological Exam Neurological: Present alert and oriented X3 Assessment and Plan *Assessment and plan (1) History of colon polyps: Status: Acute Category: Medical Code(s): Z86.0100 - Personal history of colon polyps, unspecified (2) Irritable bowel syndrome with constipation: Status: Acute Category: Medical Code(s): K58.1 - Irritable bowel syndrome with constipation (3) Screening for malignant neoplasm of colon: Status: Acute Category: Medical Code(s): Z12.11 - Encounter for screening for malignant neoplasm of colon Plan A/P: 1. Personal history of colon polyps (unspecified) and chronic IBS with constipation is the preprocedural diagnosis. The patient will be anesthetized/sedated using MAC sedation. The patient has been seen and examined. Cardiac and lung assessment prior to the examination is stable. Proceed with planned screening colonoscopy.
--- NOTE | 2025-06-01 08:52 | HMH.PROCNOTE ---
[facility] Procedure Note Date: 06/01/25 Time: 09:20 Procedure Note:: Colonoscopy Procedure Report: Colonoscopy Endoscopist: Lev Lim II, MD Referring physician: MEAGHAN Monroe Date of Procedure: June 01, 2025 Equipment: Olympus 190 variable stiffness pediatric colonoscope Sedation: MAC sedation Indication: Mrs. Ortez is a 64-year-old female who is here for screening/surveillance colonoscopy. Her last colonoscopy was 2016 but in 2010 she had multiple colon polyps removed. She has struggled to have clean bowel preparation on previous colonoscopies. She reports no abdominal pain, weight loss, change in her bowel habits or rectal bleeding. She reports no family history of colon cancer. She does have a long history of IBS?C and does take Linzess 145 mcg daily which helps to control. Procedure: Prior to the procedure, a history and physical exam was performed, and patient's medications and allergies were reviewed. The risks, benefits and alternatives of the sedation and procedure were discussed with the patient. All questions were answered and informed consent was obtained. The patient was brought to the procedure room. Patient identification and proposed procedure were verified by the physician and the nurse. The patient was placed in a left lateral decubitus position and the scope was passed under direct vision. Throughout the procedure, the patient's blood pressure, pulse, and oxygen saturations were monitored continuously. The colonoscopy was accomplished without difficulty. The patient tolerated the procedure well. Findings: On digital rectal examination there was normal rectal tone. There were no external hemorrhoids. The colonoscope was introduced through the anal canal to the rectum and advanced to the cecum. The ileocecal valve and appendiceal orifice were identified. The scope was advanced a short distance into the ileum which appeared grossly normal. The scope was then withdrawn into the colon. The cecum, ascending, transverse, descending, sigmoid and rectum were grossly normal. There were no mucosal abnormalities identified. Upon retroflexion within the rectum there were grade 1-2 internal hemorrhoids. The preparation was good throughout with [place] Preparation Score of 8 out of 9. The cecal time was 10 minutes. Impression: 1. Normal colonoscopy with intubation of the terminal ileum Plan: The patient will not require surveillance colonoscopy again for 10 years by ACS guidelines. I would continue Linzess as maintenance therapy.
--- NOTE | 2025-06-01 09:00 | EXP.ANES.CKL ---
[facility] Disclaimer: The information contained in this section may have been updated after the patient was seen, as this information can be updated by other users. Medical History History of COVID-19 Anxiety and depression Irritable bowel syndrome (IBS) Hyperlipidemia Hypertension Breast cancer Surgical History History of cholecystectomy History of hysterectomy H/O lumpectomy Family History Other COPD (chronic obstructive pulmonary disease) Diabetes Stroke Social History Smoking Status: Former smoker alcohol intake: current alcohol intake frequency: 0-2 drinks per day substance use type: denies use current occupational status: retired Travel in the last 8 weeks?: None Have you lived/traveled outside US in past 30 days?: No Contact w/someone who lives/traveled outside US past 30 days?: No Exposure to someone with infectious disease in past 14 days?: No Do you have a fever (greater than 100.4 F or 38 C)?: No Have you tested positive for COVID-19?: No Exposed to someone with COVID-19 in past 14 days?: No Do you have a sore throat?: No Do you have a cough?: No Do you have any weakness?: No Are you experiencing any nausea/vomitting?: No Do you have any diarrhea?: No Are you experiencing any unusual bleeding?: No Do you have any muscle aches/pain?: No Do you have any abdominal pain?: No Are you experiencing loss of taste or smell?: No [facility] Anesthesia Checklist Patient Identification Patient Identification: Verbal (Name & ) Structural Data Admitted From: Home Planned Operative Procedure/s: colon Consent for Planned Operative Procedure(s) Verified: Yes NPO Status Verified Time NPO: 00:00 Airway Assessment Mallampati Score:: Class II C-Spine Mobility Assessed: Yes TMJ Mobility Assessed: Yes Dentition: Good Dentition Neurological Assessment Level of Consciousness: Awake, Alert and Appropriate Anesthesia Plan Anesthesia Risk discussed: Yes Anesthesia Plan: Verified ASA Class: II Anesthesia Type: MAC
[2025-06-01 09:22] VITALS: BP 135/63; PULSE 70; RESP 18; TEMP 36.3; O2SAT 100
[2025-06-01 09:32] VITALS: BP 128/74; PULSE 72; RESP 18; O2SAT 100
[2025-06-01 09:42] VITALS: BP 127/76; PULSE 76; RESP 16; O2SAT 100
[2025-06-01 09:52] VITALS: BP 128/50; PULSE 69; RESP 18; TEMP 36.3; O2SAT 100
--- NOTE | 2025-06-01 10:02 | SUR.PHASEII ---
Pt woke up in recovery with c/o left eye irritation. Notified Alon garza. Anesthesia assessed pt and recommended an ice pack. Ice pack applied to left eye for comfort. No further complaints from pt.
== END 2025-06-01 09:52 | disposition home or self-care (01) ==
PROVIDERS: PCP Nurse Practitioner Family; Visit Provider Internal Medicine Gastroenterology
PROC: 0DJD8ZZ Inspection of Lower Intestinal Tract, Via Natural or Artificial Opening Endoscopic (ICD-10-PCS; CPT 45378; principal; 2025-06-01 10:00)
DX: Z12.11 Encounter for screening for malignant neoplasm of colon (principal); E78.5 Hyperlipidemia, unspecified; I10 Essential (primary) hypertension; K58.9 Irritable bowel syndrome, unspecified; Z87.891 Personal history of nicotine dependence; Z86.0100 Personal history of colon polyps, unspecified; Z79.899 Other long term (current) drug therapy
CPT/HCPCS: 45378; J2003; J2704; J7120